=== PATIENT | male | born 1980 | race Caucasian/White ===

== ENCOUNTER 2025-05-06 09:01 | Emergency (ER) | payer BC, SELFPAY ==
--- NOTE | ~2025-05-06 | CT_ITS ---
EXAM/PROCEDURE: CT abdomen pelvis wo con HISTORY: lower back pain, radiates into hips/lower abd COMPARISON: None available. TECHNIQUE: Noncontrast CT of abdomen and pelvis FINDINGS: The bowel gas pattern is nonobstructive with no free air free fluid or pneumatosis. No hydroureteronephrosis. Duplication of the left collecting system. No obstructing urolithiasis. Urinary bladder unremarkable. Mild diverticular disease but no gross diverticulitis. No grossly inflamed appendix. No AAA. No gross CT evidence of acute cholecystitis or pancreatitis. Liver spleen adrenal glands and stomach unremarkable. No bulky mesenteric or retroperitoneal lymphadenopathy or masses seen. Lung bases clear. Heart size normal. Degenerative changes throughout the lumbar spine and thoracic spine within the field of view. IMPRESSION: Directed noncontrast exam demonstrating demonstrating no focal acute process to explain source of patient's symptoms. Reviewed, dictated and finalized at location [facility]. [employer]
[2025-05-06 09:17] VITALS: BP 124/73; PULSE 68; RESP 18; TEMP 36.4; O2SAT 98
[2025-05-06 09:30] VITALS: BP 129/75; PULSE 69; RESP 20; O2SAT 99
[2025-05-06 09:47] LABS: Add Urine Microscopic? YES; Appearance Urine Clear (Clear); Glucose Urine UA Negative (Negative); Leukocyte Esterase Ur Negative LEU/UL (Negative); Nitrate Urine Negative (Negative); Non Pathogenic Casts 0-2; Specific Grav Ur 1.030 (1.001-1.035)
--- NOTE | 2025-05-06 10:20 | ED.BACK ---
HPI - Back Pain/Injury General Chief Complaint: Back Pain/Injury Stated Complaint: back pain for a few months Time Seen by Provider: 05/06/25 09:24 Source: patient Mode of arrival: ambulatory Limitations: no limitations History of Present Illness HPI Narrative: Patient is a 45-year-old male who presents the ED with report of lower back pain. Patient reports he has been dealing with intermittent pain throughout his lower back bilaterally for the past few months. States pain intermittently radiates into his bilateral hips, lower abdomen, denies significant pain down his lower extremities. He does complain of intermittent discoordination of his lower extremities. States pain is occasionally worse with eating or having a BM. Uses a heating pad and ibuprofen occasionally with minimal relief. Denies numbness or tingling of lower extremities, saddle anesthesia, bowel or bladder incontinence, urinary complaints. Related Data Allergies Allergy/AdvReac Type Severity Reaction Status Date / Time No Known Allergies Allergy Verified 05/06/25 09:19 Review of Systems Review of Systems: All systems reviewed & are unremarkable except as noted in HPI. All systems reviewed & are unremarkable except as noted in HPI and below Exam Narrative: GENERAL: Well appearing, well-nourished, non-toxic, in no acute distress. HEAD: Normocephalic, atraumatic. RESPIRATORY: Airway patent, respirations nonlabored. Clear to auscultation bilaterally, no rales, rhonchi, wheezing. CARDIOVASCULAR: Regular rate and rhythm without murmurs, rubs, or gallops. ABDOMINAL: Soft, nontender, nondistended. Normoactive BS. MUSCULOSKELETAL: Moves all extremities. No gross deformities. No significant bony tenderness throughout midline lumbar spine. No step-offs appreciated. Sensation intact. No significant CVA tenderness. SKIN: Warm, dry, normal color. NEURO: A&O X3. Speech clear. Cranial nerves II-XII grossly intact. Steady gait. No ataxic movements. PSYCHIATRIC: Appropriate mood and affect. Normal interaction. Course Vital Signs Vital signs: Vital Signs Temperature 97.6 F 05/06/25 09:17 Pulse Rate 68 05/06/25 09:17 Respiratory Rate 18 05/06/25 09:17 Blood Pressure 124/73 05/06/25 09:17 Pulse Oximetry 98 05/06/25 09:17 Oxygen Delivery Room Air 05/06/25 09:17 Temperature 97.6 F 05/06/25 09:17 Pulse Rate 59 L 05/06/25 10:48 Respiratory Rate 20 05/06/25 10:48 Blood Pressure 128/58 L 05/06/25 10:48 Pulse Oximetry 99 05/06/25 10:48 Oxygen Delivery Room Air 05/06/25 09:30 [facility] Narrative Medical decision making narrative: Patient presented to ED with several month history of intermittent lower back pain. Vital signs stable upon arrival. Patient is neurologically intact. No red flag symptoms. No signs of cord compression or cauda equina. UA without evidence of infection. CT scan of abdomen/pelvis without acute abnormalities. No intra-abdominal abnormalities. Does show evidence of: Degenerative changes throughout the lumbar spine and thoracic spine within the field of view. Discussed lab and imaging findings with patient. Discussed likelihood of lumbar strain related to underlying degenerative disease. Will refer to neurosurgery for further evaluation. Will prescribe lidocaine patches and muscle relaxers for home use to be used as needed. Given strict return precautions. He is in agreement with plan. Discharged in stable condition. Differential Diagnosis Differential Diagnosis: Lumbar strain, lumbar fracture, DDD, kidney stone Medical Records I have reviewed the following patient records and this information was taken into consideration when formulating the assessment and plan.: previous labs, previous ER visits, previous hospitalizations and previous clinic visits Lab Data [facility] Lab Attestation statement: I personally reviewed the patient's lab results. Labs: Lab Results 05/06/25 Range/Units 09:36 Urine Color Yellow (Yellow) Urine Appearance Clear (Clear) Urine pH 5.5 (5.0-9.0) Ur Specific [place] 1.030 (1.001-1.035) Urine Protein Trace (Negative) mg/dL Urine Glucose (UA) Negative (Negative) mg/dL Urine Ketones Trace H (Negative) mg/dL Ur Blood (Man) Negative (Negative) Urine Nitrate Negative (Negative) Urine Bilirubin Negative (Negative) Urine Urobilinogen 1.0 (<2.0) mg/dL Leukocyte Esterase Rfl Negative (Negative) MARISA/UL Urine RBC 0-2 (0-2) /hpf Urine WBC 0-5 (0-3) /hpf Ur Squamous Epith Cells None seen (Few) /hpf Urine Bacteria None seen /hpf Urine Casts 0-2 Imaging Data Attestation: I personally reviewed and interpreted this imaging study as follows: Radiologist's impression: ITS Impressions Abdomen/Pelvis CT 05/06/25 10:50 IMPRESSION: Directed noncontrast exam demonstrating demonstrating no focal acute process to explain source of patient's symptoms. Discharge Plan Discharge Clinical Impression: Strain of lumbar region Qualifiers: Encounter type: initial encounter Qualified Code(s): S39.012A - Strain of muscle, fascia and tendon of lower back, initial encounter Degenerative disc disease, lumbar Qualifiers: Disc-related pain type: discogenic back pain only Qualified Code(s): M51.360 - Other intervertebral disc degeneration, lumbar region with discogenic back pain only Patient Disposition: Home Condition: Stable Instructions: Antibiotic Form, Acute Low Back Pain (ED), Lower Back Exercises (ED) Additional Instructions: Continue Tylenol and Ibuprofen as needed for pain. You may use ice/heat, lidocaine patches to area of pain. Take muscle relaxers as needed and prescribed. Recommend taking these at night as they may cause sedation. Do not drive, operate heavy machinery, drink alcohol while on muscle relaxers as this may cause further sedation. Recommend follow-up with your primary care doctor and/or neurosurgery for further evaluation. Call offices to make appointments. Return to the ED if you experience worsening or severe pain, fall or injury, numbness in groin or legs, going to the bathroom without meaning to, unable to keep down food or drink, or any other symptoms of concern. Patient Language: Kiswahili Prescriptions: New lidocaine 5 % adhesive patch,medicated 1 patch topical DAILY Qty: 15 0RF Rx Instructions: leave on most painful area for up to 12 hrs cyclobenzaprine 5 mg tablet 5 mg PO TID PRN (Reason: muscle spasm) Qty: 15 0RF Follow-up/Referrals: Paul Price MD [Physician, Neurosurgery] Referral Note: NEUROSURGERY UNKNOWN,DOCTOR [Primary Care Provider] Time of Disposition: 11:25
[2025-05-06] MEDS: CYCLOBENZAPRINE HCL 10 MG TABLET PO (10:44)
[2025-05-06] MEDS: KETOROLAC (*BKC) 60 MG/2 ML VIAL IM (10:45)
[2025-05-06 10:48] VITALS: BP 128/58; PULSE 59; RESP 20; O2SAT 99
== END 2025-05-06 11:44 | disposition home or self-care (01) ==
PROVIDERS: Emergency Provider Physician Assistant
DX: S39.012A Strain of muscle, fascia and tendon of lower back, initial encounter (principal); M51.360 Other intervertebral disc degeneration, lumbar region with discogenic back pain only; X58.XXXA Exposure to other specified factors, initial encounter
CPT/HCPCS: 74176; 81001; 96372; 99284; A9270; J1885